=== PATIENT | female | born 1950 | race Caucasian/White ===

== ENCOUNTER 2018-07-04 13:11 | Emergency (ER) | payer MEDICARE, SELFPAY ==
[2018-07-04] VITALS (63 sets, daily range): BP systolic 136–163; BP diastolic 62–83; PULSE 98–130; RESP 18–22; TEMP 37.2–38.3; O2SAT 93–99
--- NOTE | 2018-07-04 13:37 | ED.GENADUL_ITS ---
Discharge Plan Disposition Patient Disposition: HOME Condition: Stable Discharge Details Chief Complaint: Abd Prob Clinical Impression: Diverticulitis large intestine Primary Care Provider: Delfina Cruz ED Provider: Virgilio Doshi Home Meds and New Rx's Prescriptions: New ciprofloxacin HCl 500 mg tablet 500 mg PO BID Qty: 20 RF: 0 metronidazole [Flagyl] 500 mg tablet 500 mg PO QID Qty: 40 RF: 0 No Action multivitamin 1 EACH tablet 1 ea PO DAILY RF: 0 ibuprofen [Advil Liqui-Gel] 200 MG capsule 600 mg PO Q8H PRN RF: 0 lovastatin 40 MG tablet 80 mg PO DAILY RF: 0 aspirin 81 MG tablet,delayed release (DR/EC) 81 mg PO DAILY RF: 0 lisinopril 10 MG tablet 10 mg PO DAILY RF: 0 calcium carbonate-vitamin D3 [Calcium 500 With D] 1 EACH tablet 1 ea PO DAILY RF: 0 Discharge Instructions Instructions: Diverticulitis (ED), Diverticulitis Diet (ED) Additional Instructions: As we discussed, you were offered admission overnight which you have declined. Return for reevaluation at any time for worsening or any other concern. Return tomorrow morning for recheck as discussed. Take antibiotics as prescribed. May use Tylenol as needed for discomfort. Small, frequent sips of fluids to maintain hydration and may slowly advance a bland diet as tolerated Medical Decision Making 67-year-old female presents from home complaining of 2-3 weeks of lower abdominal pain is been intermittent and now worse over the past 4-5 days time. Associated with increased flatus after eating and mild sensation of bloating. She arrives to emerge department afebrile, noted to have a pulse in the 120s, normal blood pressure. On exam she is tender in the lower abdomen. Differential diagnosis includes constipation, ileus, diverticulitis. Patient had IV access established, given fluid bolus and referred for laboratory testing and CT images. Diagnostics reveal white blood cell count 10, reassuring chemistries with LFTs. Her CT: reveals diverticulitis with 15 mm collection of air surrounded by 4-5 cm of soft tissue density. It is adjacent to the inflamed colon and could represent focal perforation and/or abscess. Case discussed with Dr Corley and patient seen in consultation. Admission offered which the patient declined, stating she could not leave her boyfriend at home alone. She did agree to an initial dose of antibiotics in the emergency department to return tomorrow for a recheck. She will be placed on ciprofloxacin and Flagyl Lab Data Lab results reviewed: Yes I reviewed the patient's lab results. Laboratory Tests Range/Units 07/04/18 07/04/18 13:45 13:45 WBC (4.4-10.8) k/cumm 10.49 RBC (4.00-5.20) m/cumm 3.15 L Hgb (12.0-15.5) g/dL 9.8 L Hct (36.0-46.0) % 30.3 L MCV (80-95) fL 96.2 H MCH (27.0-33.0) pg 31.1 MCHC (32.0-36.0) g/dL 32.3 RDW (11.7-14.6) % 11.5 L Plt Count (130-400) x1000/uL 265 MPV (8.0-11.0) fL 11.5 H Immature Gran % 0.2 Neutrophils % 86.5 Lymphocytes % 7.2 Monocytes % 6.0 Eosinophils % 0.0 Basophils % 0.1 Absolute Neutrophils (1.2-6.7) k/cumm 9.07 H Absolute Lymphocytes (1.2-3.4) k/cumm 0.76 L Absolute Monocytes (0.11-0.7) k/cumm 0.63 Absolute Eosinophils (0.0-0.7) k/cumm 0.00 Absolute Basophils (0.0-0.2) k/cumm 0.01 Sodium (136-145) mmol/L 140 Potassium (3.5-5.1) mmol/L 3.7 Chloride (98-107) mmol/L 103 Carbon Dioxide (21.0-32.0) mmol/L 23.4 Anion Gap (3-11) mmol/L 13.6 H BUN (7-18) mg/dL 25 H Creatinine (0.55-1.02) mg/dL 1.52 H Estimated GFR/1.73 m2 (mL/min/1.73m2) 34.11 Glucose (70-100) mg/dL 128 H Calcium (8.5-10.1) mg/dL 10.2 H Magnesium (1.8-2.4) mg/dL 2.1 Total Bilirubin (0.2-1.0) mg/dL 0.9 AST (15-37) U/L 16 ALT (12-78) U/L 23 Alkaline Phosphatase (46-116) U/L 199 H Troponin I (0.00-0.06) ng/mL < 0.02 Total Protein (6.4-8.2) g/dL 7.7 Albumin (3.4-5.0) g/dL 3.6 Lipase (73-393) U/L 237 HPI General Mode of arrival: ambulatory . Date/Time Provider Initiated Documentation: 07/04/18 13:13 . Limitations to Documentation: no limitations . Information obtained by: patient . History of Present Illness 67 year old F presents to the emergency department with the chief complaint of Lower abdominal pain over weeks time, worse the past 3-5 days, described as moderate, Quality is described as aching and dull, and is localized to the abdomen. Patient reports no radiation. Patient started experiencing this day(s) and it has been intermittent. No relieving factors improve symptom(s), Eating worsens symptoms . Patient notes other (Flatus, decreased p.o. and). Related Data Home Medications Medication Instructions Recorded Confirmed aspirin 81 mg PO DAILY tab-cap 06/05/14 07/04/18 calcium carbonate-vitamin D3 1 ea PO DAILY 06/05/14 07/04/18 [Calcium 500 + Vit D 400 Tablet] ibuprofen [Advil] 600 mg PO Q8H PRN 06/05/14 07/04/18 lisinopril 10 mg PO DAILY tab-cap 06/05/14 07/04/18 lovastatin 80 mg PO DAILY tab-cap 06/05/14 07/04/18 multivitamin 1 ea PO DAILY 06/05/14 07/04/18 ciprofloxacin HCl 500 mg PO BID #20 tab 07/04/18 metronidazole [Flagyl] 500 mg PO QID #40 tab 07/04/18 Previous Rx's Medication Instructions Recorded ciprofloxacin HCl 500 mg PO BID #20 tab 07/04/18 metronidazole [Flagyl] 500 mg PO QID #40 tab 07/04/18 Allergies Allergy/AdvReac Type Severity Reaction Status Date / Time Penicillins AdvReac diarrhea Unverified 07/04/18 14:04 General Stated Complaint: Abd Prob RAUDEL: 3 Review of Systems Review of Systems 8 systems reviewed and otherwise - [facility] Medical History Diverticulosis (Acute) Hypercholesteremia (Acute) Hypertension (Chronic) Social History Smoking/Tobacco Use Status: Never alcohol intake: never substance use type: does not use Exam Narrative Exam Narrative: GEN: awake, alert, oriented 3. Pleasant, well groomed, interactive. HEAD: Normocephalic, atraumatic ENT: Mucous membranes moist, oropharynx unremarkable, External ear exam unremarkable EYES: PERRL, EOMI NECK: Full ROM, no BAL, no menigismus CHEST/RESP: Nontender, clear to auscultation bilateral, no wheeze/rhonchi/rales CARDIOVASCULAR: Regular and tach, no murmur, rub delmar. 2+ Rad pulse bilateral ABDOMEN: Soft, tender in the lower abdomen without rebound or guard, no mass. +Bowel sounds EXT: Full ROM, no edema, no rash Neuro: Grossly normal neurologic exam, conversant, interactive. Psych: Speech fluent, thoughts congruent, affect normal Course Vital Signs Temperature 37.2 C 07/04/18 13:24 Pulse 128 H 07/04/18 13:24 Respiratory Rate 22 07/04/18 13:24 Blood Pressure 136/71 07/04/18 13:24 Pulse Oximetry 96 07/04/18 13:24 Temperature 37.2 C 07/04/18 13:24 Temperature Source Temporal Artery Scan 07/04/18 13:24 Pulse 128 H 07/04/18 13:24 Respiratory Rate 22 07/04/18 13:24 Blood Pressure 136/71 07/04/18 13:24 Blood Pressure Position Sitting 07/04/18 13:24 Pulse Oximetry 96 07/04/18 13:24 Oxygen Delivery Method Room Air 07/04/18 13:24 Oxygen Flow Rate 0 07/04/18 13:24 Pain Level 7 07/04/18 13:24
[2018-07-04] MEDS: Normal Saline Flush 10 ML SYR IVP (13:45)
[2018-07-04] MEDS: Lactated Ringers 1,000 ML 1000 ML IV (14:00)
[2018-07-04 14:31] LABS: Abs Immature Grans 0.02 k/cumm (0.0-0.09); Absolute Basophil Count 0.01 k/cumm (0.0-0.2); Absolute Lymphocyte Count 0.76 k/cumm (1.2-3.4); Absolute Monocyte Count 0.63 k/cumm (0.11-0.7); Absolute Neutrophil Count 9.07 k/cumm (1.2-6.7); Basophils % 0.1; HCT 30.3 % (36.0-46.0); HGB 9.8 g/dL (12.0-15.5); Immature Grans % 0.2; Lymphocytes % 7.2; Mean Corp. HGB Concentration 32.3 g/dL (32.0-36.0); Mean Corpuscular Hemoglobin 31.1 pg (27.0-33.0); Mean Corpuscular Volume 96.2 fL (80-95); Mean Platelet Volume 11.5 fL (8.0-11.0); Neutrophils % 86.5; Platelet Count 265 x1000/uL (130-400); RBC 3.15 m/cumm (4.00-5.20); RBC Distribution Width 11.5 % (11.7-14.6); White Blood Cell Count 10.49 k/cumm (4.4-10.8)
[2018-07-04 14:40] LABS: ALT 23 U/L (12-78); AST 16 U/L (15-37); Albumin 3.6 g/dL (3.4-5.0); Alkaline Phosphatase 199 U/L (46-116); Anion Gap 13.6 mmol/L (3-11); BUN 25 mg/dL (7-18); Bilirubin, Total 0.9 mg/dL (0.2-1.0); CO2 23.4 mmol/L (21.0-32.0); CREATININE 1.52 mg/dL (0.55-1.02); Calcium 10.2 mg/dL (8.5-10.1); Chloride 103 mmol/L (98-107); Estimated GFR 34.11 (mL/min/1.73m2); Glucose 128 mg/dL (70-100); Lipase 237 U/L (73-393); Magnesium 2.1 mg/dL (1.8-2.4); Potassium 3.7 mmol/L (3.5-5.1); Sodium 140 mmol/L (136-145); Total Protein 7.7 g/dL (6.4-8.2)
[2018-07-04 14:42] LABS: Troponin I < 0.02 ng/mL (0.00-0.06)
--- NOTE | 2018-07-04 15:07 | DI.CT_ITS ---
SYMPTOMS/DIAGNOSIS: LOWER ABDOMINAL PAIN, H/O TICS, LOW GFR ABDOMINAL AND PELVIC CT: CT examination of the abdomen and pelvis was performed without contrast administration. Images obtained through the lung bases show probable lingular scarring. No free intraperitoneal air seen in the general peritoneal cavity; however, there is a gas and fluid collection in the left lower quadrant adjacent to an area of sigmoid wall thickening and adjacent fat edema, consistent with a perforated diverticulitis with locally contained abscess. This measures up to about 5 cm in diameter. No evidence of obstruction. Liver, spleen and pancreas unremarkable by noncontrast criteria. Adrenals and kidneys appear normal. Abdominal aorta is of normal diameter. Bilateral fat-containing inguinal hernias noted. CONCLUSION: Findings consistent with a perforated diverticulitis with locally contained abscess, approximately 5 cm in diameter. Incidental 2-3 mm bibasilar intrapulmonary nodules noted.
--- NOTE | 2018-07-04 15:26 | NUR.NOTE ---
Void x2; unable to obtain UA up to now. 1st void contaminated with stool. Patient put large amount tissue paper in with 2nd void. Dr. Doshi notifiedNursing Note:
--- NOTE | 2018-07-04 15:33 | DI.VRAD_ITS ---
EXAM: CT Abdomen and Pelvis Without Contrast EXAM DATE/TIME: 07/04/2018 2:51 PM CLINICAL HISTORY: 67 years old, female; Pain; Abdominal pain; Other: Lower; Patient HX: Lower abd pain, HX tics, low gfr TECHNIQUE: Axial computed tomography images of the abdomen and pelvis without contrast. All CT scans at this facility use at least one of these dose optimization techniques: automated exposure control; mA and/or kV adjustment per patient size (includes targeted exams where dose is matched to clinical indication); or iterative reconstruction. Coronal and sagittal reformatted images were created and reviewed. COMPARISON: No relevant prior studies available. FINDINGS: Lower thorax: 4.6 mm nodule in the right lower lobe Opacities in the lingula may represent mild atelectasis or pneumonia. Small hiatal hernia. ABDOMEN: Liver: Normal. No mass. Gallbladder and bile ducts: Normal. No calcified stones. No ductal dilation. Pancreas: Normal. No ductal dilation. Spleen: Normal. No splenomegaly. Adrenals: Normal. No mass. Kidneys and ureters: Normal. No hydronephrosis. Stomach and bowel: Diverticulosis and Bowel wall thickening along the rectosigmoid colon. Mild pericolonic inflammatory changes. No evidence of abscess formation or bleeding. Findings consistent with acute diverticulitis. Appendix: Normal appendix PELVIS: Bladder: Unremarkable as visualized. Reproductive: Unremarkable as visualized. ABDOMEN and PELVIS: Intraperitoneal space: 15 mm collection of air surrounded by 4-5 cm of soft tissue density. It is adjacent to the inflamed colon and could represent focal perforation and/or abscess. Bones/joints: No acute fracture. No dislocation. Soft tissues: Unremarkable. Vasculature: Normal. No abdominal aortic aneurysm. Lymph nodes: Normal. No enlarged lymph nodes. IMPRESSION: 1. Diverticulosis and Bowel wall thickening along the rectosigmoid colon. Mild pericolonic inflammatory changes. No evidence of abscess formation or bleeding. Findings consistent with acute diverticulitis. 2. 15 mm collection of air surrounded by 4-5 cm of soft tissue density. It is adjacent to the inflamed colon and could represent focal perforation and/or abscess. Differential includes adnexal mass 3. Opacities in the lingula may represent mild atelectasis or pneumonia. THIS REPORT CONTAINS FINDINGS THAT MAY BE CRITICAL TO PATIENT CARE. The findings were verbally communicated via telephone conference with ROYAL HERNANDEZ at 3:32 PM EST on 07/04/2018. The findings were acknowledged and understood. Dictated and Authenticated by: Jeana Vaughn MD. Ordering:ORLIN Poole MD
--- NOTE | 2018-07-04 15:37 | NUR.NOTE ---
Difficulty with obtaining clean urine. Patient now also febrile. Dr. Doshi notified. Dr. Corley in to see Ms. Hagan Note:
--- NOTE | 2018-07-04 16:00 | SCONE_ITS ---
Date of service: 07/04/18 Time of Service: 15:48 Assessment and Plan (1) Diverticulitis large intestine: Current visit: Yes Status: Acute A\\ Diverticulitis with ? 15 mm microperf vs small abscess vs adnexal mass Low grade fever and abdominal tenderness P\\ Recommend admission with bowel rest and IV antibiotics Patient is unsure whether she wants to stay. She states that she has someone she takes care of at home. Risk of worsening symptoms reviewed with the patient. She will make some calls and then decide whether she will stay or go home. This was discussed with Dr. Doshi Qualifiers: Diverticulitis bleeding: without bleeding Diverticulitis complication: unspecified complication status Qualified Code(s): K57.32 - Diverticulitis of large intestine without perforation or abscess without bleeding History of Present Illness Chief Complaint: Abdominal pain Narrative: 67 year old with intermittent lower abdominal pain x 2-3 weeks. In the last 5-6 days the pain has increased. She doesn't complain of fevers or chills. She has had anorexia. No weight loss. Has known diverticulosis. NO diverticulitis in the past. Has been having BM's and passing flatus. Just had a low grade fever in the ER. Labs showed normal WBC CT scan Findings: 1. Diverticulosis and Bowel wall thickening along the rectosigmoid colon. Mild pericolonic inflammatory changes. No evidence of abscess formation or bleeding. Findings consistent with acute diverticulitis. 2. 15 mm collection of air surrounded by 4-5 cm of soft tissue density. It is adjacent to the inflamed colon and could represent focal perforation and/or abscess. Differential includes adnexal mass 3. Opacities in the lingula may represent mild atelectasis or pneumonia. Review of Systems Constitutional Reports poor appetite and Denies weight loss Cardiovascular Denies chest pain, Denies irregular heart rhythm, Denies palpitations and Denies dyspnea Respiratory Denies chest congestion, Denies cough, Denies excessive phlegm production and Denies dyspnea Gastrointestinal Reports as per HPI and Denies nausea Genitourinary Reports system reviewed and no additional complaints, except as docu Endocrine Denies cold intolerance, Denies heat intolerance and Denies palpitations Hematologic/Lymphatic Denies easy bleeding and Denies easy bruising [facility] Medical History Diverticulosis (Acute) Hypercholesteremia (Acute) Hypertension (Chronic) Social History Smoking/Tobacco Use Status: Never alcohol intake: never substance use type: does not use Exam Const General: cooperative and no acute distress Orientation: alert, awake and oriented x3 Resp Auscultation: clear to auscultation bilaterally Cardio Rate: regular rate Rhythm: regular rhythm Heart Sounds: no gallops, no murmurs and no rubs GI Palpation: soft, no hepatosplenomegaly and tender in the LLQ (no rebound, mild guarding) Auscultation: hypoactive bowel sounds Results Last Vital Signs Temp 100.9 F H 07/04/18 15:32 Pulse 104 H 07/04/18 15:32 Resp 18 07/04/18 15:32 BP 144/62 H 07/04/18 15:32 Pulse Ox 98 07/04/18 15:32 Labs : 07/04/18 13:45 07/04/18 13:45 Laboratory Results - last 24 hr 07/04/18 07/04/18 13:45 13:45 WBC 10.49 RBC 3.15 L Hgb 9.8 L Hct 30.3 L MCV 96.2 H MCH 31.1 MCHC 32.3 RDW 11.5 L Plt Count 265 MPV 11.5 H Immature Gran % 0.2 Neutrophils % 86.5 Lymphocytes % 7.2 Monocytes % 6.0 Eosinophils % 0.0 Basophils % 0.1 Absolute Neutrophils 9.07 H Absolute Lymphocytes 0.76 L Absolute Monocytes 0.63 Absolute Eosinophils 0.00 Absolute Basophils 0.01 Sodium 140 Potassium 3.7 Chloride 103 Carbon Dioxide 23.4 Anion Gap 13.6 H BUN 25 H Creatinine 1.52 H Estimated GFR/1.73 m2 34.11 Glucose 128 H Calcium 10.2 H Magnesium 2.1 Total Bilirubin 0.9 AST 16 ALT 23 Alkaline Phosphatase 199 H Troponin I < 0.02 Total Protein 7.7 Albumin 3.6 Lipase 237
[2018-07-04] MEDS: Acetaminophen 500 MG TAB 1000 MG PO (16:14)
[2018-07-04] MEDS: Ciprofloxacin 500 MG TAB PO ×2 (16:16→18:47)
[2018-07-04] MEDS: MetroNIDAZOLE 500 MG/100 ML BAG 100 MG IVPB (16:19)
[2018-07-04] MEDS: metroNIDAZOLE 500 MG TAB PO (18:47)
== END 2018-07-04 18:33 | disposition home or self-care (01) ==
PROVIDERS: Emergency Provider Emergency Medicine; PCP Nurse Practitioner
DX: K57.32 Diverticulitis of large intestine without perforation or abscess without bleeding (principal); R93.3 Abnormal findings on diagnostic imaging of other parts of digestive tract; I10 Essential (primary) hypertension
CPT/HCPCS: 36415; 80053; 83690; 96361; 96365; 99253; 99283; 99284; 74176; 83735; 84484; 85025

== ENCOUNTER 2018-07-05 10:04 | Emergency (ER) | payer MEDICARE, SELFPAY ==
[2018-07-05 10:34] VITALS: BP 136/63; PULSE 88; RESP 18; TEMP 36.6; O2SAT 98
--- NOTE | 2018-07-05 10:40 | ED.GENADUL_ITS ---
Discharge Plan Disposition Patient Disposition: HOME Condition: Fair Discharge Details Chief Complaint: GenMedical Clinical Impression: Diverticulitis large intestine Primary Care Provider: Delfina Cruz ED Provider: Mis Boyer Home Meds and New Rx's Prescriptions: Continued multivitamin 1 EACH tablet 1 ea PO DAILY RF: 0 ibuprofen [Advil Liqui-Gel] 200 MG capsule 600 mg PO Q8H PRN RF: 0 lovastatin 40 MG tablet 80 mg PO DAILY RF: 0 aspirin 81 MG tablet,delayed release (DR/EC) 81 mg PO DAILY RF: 0 lisinopril 10 MG tablet 10 mg PO DAILY RF: 0 calcium carbonate-vitamin D3 [Calcium 500 With D] 1 EACH tablet 1 ea PO DAILY RF: 0 ciprofloxacin HCl 500 mg tablet 500 mg PO BID Qty: 20 RF: 0 metronidazole [Flagyl] 500 mg tablet 500 mg PO QID Qty: 40 RF: 0 Discharge Instructions Instructions: Diverticulitis (ED), Diverticulitis Diet (ED) Additional Instructions: Encourage hydration. Continue medications as previously prescribed. General surgery group will reach out to you with a follow-up appointment in 2 weeks. If you do not hear from them, please call number listed below. If you develop nausea, vomiting, inability to stay hydrated, no blood in your stool, have increased pain, fevers or chills or other new/worsening symptoms please seek care urgently once again Referrals: Sean Brady DO [ [facility] STAFF PHYSICIAN] - ([phone]) Medical Decision Making Patient is a 67-year-old female presenting today for recheck of her diverticulitis. Patient was diagnosed with diverticulitis yesterday. At that point, it was recommended that the patient be admitted is that there is a 15 mm collection of air surrounded by a 4-5 cm soft tissue density concerning for focal perforation and/or abscess. She reports is been taking her Cipro and Flagyl as prescribed. Reports that overall she is feeling improved. Continues to be gassy which causes increased pressure until she has a bowel movement. Reports that she feels much improved after bowel movement. Has not been taking her other daily medications as she reports she was advised against this. Denies any nausea or vomiting. Denies any pain radiating to her back. No change in urinary habits. CT from yesterday reviewed: IMPRESSION: 1. Diverticulosis and Bowel wall thickening along the rectosigmoid colon. Mild pericolonic inflammatory changes. No evidence of abscess formation or bleeding. Findings consistent with acute diverticulitis. 2. 15 mm collection of air surrounded by 4-5 cm of soft tissue density. It is adjacent to the inflamed colon and could represent focal perforation and/or abscess. Differential includes adnexal mass 3. Opacities in the lingula may represent mild atelectasis or pneumonia. Consult with Dr. Garcia. Advised the patient is feeling improved and continues to refuse admission for this abscess. He advised that if she is continuing to feel well and improved she will continue with her daily antibiotics as previously prescribed. Advise a 2-week follow-up with them advised the patient will need a colonoscopy. Advised the patient may re-begin her daily medications as previously prescribed including her aspirin, vitamin D3, lisinopril, lovastatin. Discussed this plan with the patient. All of her questions and concerns were addressed. She was given strict return precautions. All of her questions and concerns were addressed and she is in agreement with this plan HPI General Mode of arrival: ambulatory . Date/Time Provider Initiated Documentation: 07/05/18 10:38 . Limitations to Documentation: no limitations . Information obtained by: patient . History of Present Illness 67 year old F presents to the emergency department with the chief complaint of diverticulitis, described as mild, with intensity rated at 3. Quality is described as aching, and is localized to the abdomen. Patient reports no radiation. Patient started experiencing this day(s) and it has been intermittent. other things that improve symptom(s), (passing flatus) No exacerbating factors reported . Patient notes loss of appetite (has been hydrating but diminished food intake); denies chest pain, cough, fever/chills, headaches, nausea/vomiting and shortness of breath. Patient did receive the following treatments prior to arrival, none Related Data Home Medications Medication Instructions Recorded Confirmed aspirin 81 mg PO DAILY tab-cap 06/05/14 07/04/18 calcium carbonate-vitamin D3 1 ea PO DAILY 06/05/14 07/04/18 [Calcium 500 With D] ibuprofen [Advil Liqui-Gel] 600 mg PO Q8H PRN 06/05/14 07/04/18 lisinopril 10 mg PO DAILY tab-cap 06/05/14 07/04/18 lovastatin 80 mg PO DAILY tab-cap 06/05/14 07/04/18 multivitamin 1 ea PO DAILY 06/05/14 07/04/18 ciprofloxacin HCl 500 mg PO BID #20 tab 07/04/18 metronidazole [Flagyl] 500 mg PO QID #40 tab 07/04/18 Previous Rx's Medication Instructions Recorded ciprofloxacin HCl 500 mg PO BID #20 tab 07/04/18 metronidazole [Flagyl] 500 mg PO QID #40 tab 07/04/18 Allergies Allergy/AdvReac Type Severity Reaction Status Date / Time Penicillins AdvReac diarrhea Unverified 07/05/18 10:37 General Stated Complaint: GenMedical RAUDEL: 4 Review of Systems Constitutional Reports as per HPI, Denies chills, Denies fatigue, Denies fever(s) and Denies headache(s) ENT Denies headache(s) Cardiovascular Reports as per HPI, Denies chest pain and Denies dyspnea Respiratory Denies dyspnea Gastrointestinal Reports as per HPI, Denies melena, Denies bloating, Reports change in bowel habits (has been having loose stools), Denies constipation, Reports excessive flatus, Reports loose stools, Denies nausea and Denies vomiting Genitourinary Denies system reviewed and no additional complaints, except as docu (denies change in urinary habits) Musculoskeletal Reports as per HPI and Denies back pain Integumentary/Breasts Reports as per HPI and Denies rash Neurologic Denies headache(s) Endocrine Denies fatigue [facility] Medical History Diverticulosis (Acute) Hypercholesteremia (Acute) Hypertension (Chronic) Social History Smoking/Tobacco Use Status: Never alcohol intake: never substance use type: does not use Exam Const General: cooperative, healthy appearing, comfortable, no acute distress and well developed Nutritional Appearance: average body habitus and well nourished Orientation: alert and awake [facility] Head: normal to inspection Mouth: moist mucous membranes Resp Effort & Inspection: normal respiratory effort, able to speak in complete sentences and no respiratory distress Auscultation: clear to auscultation bilaterally, no rales, no rhonchi and no wheezes Cardio Rate: regular rate Rhythm: regular rhythm Heart Sounds: S1 normal and S2 normal GI Inspection: normal to inspection, no abdominal wall ecchymosis, no edema and non-distended Palpation: soft, no hepatosplenomegaly, not firm, no guarding and tender (mild tenderness in LLQ with no peritoneal findings) Percussion: normal to percussion Auscultation: normal bowel sounds Back/Spine/Pelvis Back: no CVA tenderness Skin General skin exam: no rashes or lesions noted Trauma: no lacerations or abrasions Neuro General: alert and awake Cognition: normal cognition Speech: speech normal Gait: normal gait Psych Appearance: grossly normal and well kempt Mental Status: mental status grossly normal Speech and Movement: speech and movement normal Course Vital Signs Temperature 36.6 C 07/05/18 10:34 Pulse 88 07/05/18 10:34 Respiratory Rate 18 07/05/18 10:34 Blood Pressure 136/63 07/05/18 10:34 Pulse Oximetry 98 07/05/18 10:34 Temperature 36.6 C 07/05/18 10:34 Temperature Source Skin 07/05/18 10:34 Pulse 88 07/05/18 10:34 Respiratory Rate 18 07/05/18 10:34 Respiratory Effort 07/05/18 10:34 Blood Pressure 136/63 07/05/18 10:34 Pulse Oximetry 98 07/05/18 10:34 Oxygen Delivery Method Room Air 07/05/18 10:34 Oxygen Flow Rate 0 07/05/18 10:34 Pain Level 4 07/05/18 10:34 Comment 07/05/18 10:34
== END 2018-07-05 11:07 | disposition home or self-care (01) ==
PROVIDERS: Emergency Provider Physician Assistant; PCP Nurse Practitioner
DX: K57.32 Diverticulitis of large intestine without perforation or abscess without bleeding (principal); R93.3 Abnormal findings on diagnostic imaging of other parts of digestive tract; I10 Essential (primary) hypertension

== ENCOUNTER 2019-01-28 08:39 | Outpatient (REF) | payer MEDICARE, SELFPAY ==
[2019-01-28 11:32] LABS: HCT 33.8 % (36.0-46.0); Mean Corp. HGB Concentration 32.5 g/dL (32.0-36.0); Mean Corpuscular Hemoglobin 31.6 pg (27.0-33.0); Mean Corpuscular Volume 97.1 fL (80-95); Mean Platelet Volume 11.3 fL (8.0-11.0); Platelet Count 211 x1000/uL (130-400); RBC 3.48 m/cumm (4.00-5.20); RBC Distribution Width 11.6 % (11.7-14.6); White Blood Cell Count 2.85 k/cumm (4.4-10.8)
[2019-01-28 11:51] LABS: ALT 27 U/L (12-78); AST 18 U/L (15-37); Alkaline Phosphatase 91 U/L (46-116); Anion Gap 11.2 mmol/L (3-11); BUN 21 mg/dL (7-18); CO2 23.8 mmol/L (21.0-32.0); CREATININE 1.27 mg/dL (0.55-1.02); Calcium 9.1 mg/dL (8.5-10.1); Calculated LDL 157 mg/dL; Chloride 107 mmol/L (98-107); Cholesterol 246 mg/dL (50-200); Estimated GFR 41.85 (mL/min/1.73m2); Glucose 105 mg/dL (70-100); HDL Cholesterol 52 mg/dL (40-60); Potassium 4.4 mmol/L (3.5-5.1); Sodium 142 mmol/L (136-145); Total Protein 7.2 g/dL (6.4-8.2); Triglyceride 188 mg/dL (30-150)
== END 2019-01-28 08:59 ==
LOC: NCHCN 08:39
PROVIDERS: PCP Nurse Practitioner; Visit Provider Nurse Practitioner
DX: N28.9 Disorder of kidney and ureter, unspecified (principal); I10 Essential (primary) hypertension; E78.5 Hyperlipidemia, unspecified; D64.9 Anemia, unspecified
CPT/HCPCS: 80053; 80061; 83721; 85027

== ENCOUNTER 2019-03-10 00:44 | Outpatient (CLI) | payer MEDICARE, SELFPAY ==
--- NOTE | 2019-03-10 13:12 | DI.MAMMO_ITS ---
SYMPTOM/DIAGNOSIS: SCREENING, Z12.39 MAMMOGRAMS: Mammograms were interpreted according to the usual protocol including computer analysis with CAD system, tomosynthesis and C view imaging. Comparison is made with prior examinations. Breast density, Category B. No suspicious masses or microcalcifications are seen. There is an asymmetric density seen in the upper outer quadrant of the right breast. This area should be further evaluated with a spot compression view. Ultrasound may be indicated at that time IMPRESSION: Additional views of the right breast as described above. Category 0. MQSA ASSESSMENT OF FINDINGS: Incomplete: Needs additional imaging evaluation. Category 0. Patient will receive a letter notifying them of these results. BI-RADS category B. There are scattered areas of fibroglandular density.
== END 2019-03-10 01:04 ==
PROVIDERS: PCP Nurse Practitioner; Visit Provider Nurse Practitioner
DX: Z12.31 Encounter for screening mammogram for malignant neoplasm of breast (principal); R92.8 Other abnormal and inconclusive findings on diagnostic imaging of breast
CPT/HCPCS: 77063; 77067

== ENCOUNTER 2019-03-22 00:24 | Outpatient (CLI) | payer MEDICARE, SELFPAY ==
--- NOTE | 2019-03-22 10:45 | DI.COMBO_ITS ---
SYMPTOM/DIAGNOSIS: ASYMMETRIC DENSITY UPPER OUTER QUADRANT RT BREAST ADDITIONAL MAMMOGRAPHIC VIEWS RIGHT BREAST, RIGHT BREAST ULTRASOUND: 03/22 Additional images are interpreted according to the usual protocol including tomosynthesis and 2D imaging. Additional mammographic views of the right breast and right breast ultrasound are interpreted in conjunction. These examinations were obtained to evaluate a possible area of nodularity with microcalcifications in the upper, outer quadrant right breast. Additional mammographic views show no definite mass. The microcalcifications in question are nonspecific but probably benign and only number 3 or 4. These are punctate microcalcifications. Breast ultrasound shows no evidence of a mass or cyst. CONCLUSION: No specific evidence of malignancy at this time. Follow up unilateral right breast mammogram recommended in six months. Category 3. breast density category B. MQSA ASSESSMENT OF FINDINGS: Probably benign. Six month follow-up recommended. Category 3. Patient will receive a letter notifying them of these results. BI-RADS category B. There are scattered areas of fibroglandular density.
== END 2019-03-22 00:44 ==
PROVIDERS: PCP Nurse Practitioner; Visit Provider Nurse Practitioner
DX: Z12.31 Encounter for screening mammogram for malignant neoplasm of breast (principal); R92.8 Other abnormal and inconclusive findings on diagnostic imaging of breast; R92.0 Mammographic microcalcification found on diagnostic imaging of breast
CPT/HCPCS: 76642; 77063; 77067

== ENCOUNTER 2019-09-13 02:11 | Outpatient (CLI) | payer MEDICARE, SELFPAY ==
--- NOTE | 2019-09-13 | DI.MAMMO_ITS ---
EXAM: MG MAMMO DIAGNOSTIC UNI. CLINICAL HISTORY: ABNL RT MAMMO, R92.8. TECHNIQUE: Full field digital CC and MLO mammographic images were obtained with 3D tomosynthesis and utilizing computer aided detection (CAD). COMPARISON: . 2009 through 2018. FINDINGS: Breast density: Category B, scattered fibroglandular densities. This is a six-month follow-up from 10 March 2019. Masses/Architectural Distortion: None seen. Microcalcifications: No suspicious pleomorphic-type calcifications are seen. Stable benign appearing calcifications are noted. Skin Thickening/Nipple Retraction: None. Axilla: Unremarkable. IMPRESSION: 1. BI-RADS category 2, negative with benign findings. No significant interval change with no specifi c features of malignancy noted. 2. Unless there is more urgent need, screening mammography is recommended, as per [employer] guidelines. A negative radiographic report should not delay biopsy if a dominant or clinically suspicious mass is present. Up to ten percent of cancers are not identified on mammography. A negative report may reinforce clinical impression. Adenosis and dense breasts may obscure an underlying neoplasm. False positive reports average 6 to 10%. Patient will receive a letter notifying them of these results.
== END 2019-09-13 02:31 ==
PROVIDERS: PCP Nurse Practitioner; Visit Provider Nurse Practitioner
DX: Z12.31 Encounter for screening mammogram for malignant neoplasm of breast (principal); R92.8 Other abnormal and inconclusive findings on diagnostic imaging of breast; N64.59 Other signs and symptoms in breast
CPT/HCPCS: 77061; 77065; G0279

== ENCOUNTER 2020-02-23 09:39 | Outpatient (REF) | payer MEDICARE, SELFPAY ==
[2020-02-23 15:04] LABS: Absolute Basophil Count 0.02 10^3/uL (0.0-0.2); Absolute Eosinophil Count 0.04 10^3/uL (0.0-0.7); Absolute Lymphocyte Count 1.07 10^3/uL (1.2-3.4); Absolute Monocyte Count 0.38 10^3/uL (0.1-0.8); Absolute Neutrophil Count 1.73 10^3/uL (1.2-6.7); Basophils % 0.6; Eosinophils % 1.2; HCT 31.5 % (36.0-46.0); HGB 10.3 g/dL (11.2-15.7); MCH 31.8 pg (27.0-33.0); MCHC 32.7 % (32.0-36.0); MCV 97.2 fL (80-95); MPV 11.5 fL (8.0-11.0); Monocytes % 11.7; Neutrophils % 53.5; Nucleated RBC 0 %; Platelet Count 197 10^3/uL (130-400); RBC 3.24 10^6/uL (3.93-5.22); RDW 11.7 % (11.7-14.6); RDW-SD 41.4 fL; WBC 3.24 10^3/uL (4.4-10.8)
[2020-02-23 15:36] LABS: ALT 24 U/L (14-59); AST 17 U/L (15-37); Albumin 4.1 g/dL (3.4-5.0); Alkaline Phosphatase 78 U/L (46-116); Anion Gap 11.8 mmol/L (3-11); BUN 23 mg/dL (7-18); CO2 23.2 mmol/L (21.0-32.0); CREATININE 1.42 mg/dL (0.55-1.02); Calcium 9.1 mg/dL (8.5-10.1); Calculated LDL 168 mg/dL (<100); Chloride 108 mmol/L (98-107); Cholesterol 273 mg/dL (<200); Estimated GFR 36.68 (mL/min/1.73m2); Glucose 100 mg/dL (74-106); HDL Cholesterol 52 mg/dL (40-60); Potassium 4.4 mmol/L (3.5-5.1); Sodium 143 mmol/L (136-145); Triglyceride 265 mg/dL (<150)
== END 2020-02-23 09:59 ==
LOC: NCHCN 09:39
PROVIDERS: PCP Nurse Practitioner; Visit Provider Nurse Practitioner
DX: I10 Essential (primary) hypertension (principal); E78.5 Hyperlipidemia, unspecified; N28.9 Disorder of kidney and ureter, unspecified; R73.9 Hyperglycemia, unspecified
CPT/HCPCS: 80053; 80061; 83036; 85025

== ENCOUNTER 2020-02-24 01:47 | Outpatient (CLI) | payer MEDICARE, SELFPAY ==
--- NOTE | 2020-02-24 13:15 | DI.CT_ITS ---
EXAM: CT CHEST WO CLINICAL HISTORY: LUNG NODULE,R91.8,F/U INCIDENTAL FINDINGS ON ABD/PELVIC CT. TECHNIQUE: Imaging protocol: Axial computed tomography images were obtained and coronal and sagittal reformatted images were created and reviewed. COMPARISON: CT CT ABDOMEN PELVIS WO from 07/04/2018 FINDINGS: Tracheobronchial tree: Patent where visualized. Mediastinum and Mari: No dominant adenopathy or fluid collection. Note is made of an aberrant right s ubclavian artery which is a normal variant. Pulmonary parenchyma: There is a stable 5 mm nodule in the right lower lobe. There is a calcified gr anuloma in the right lower lobe. There are few other tiny 1-2 mm nodules scattered in the lungs. No architectural distortion. No focal consolidating infiltrates. Scarring in the right lung base and l eft lingula. Pleura: No effusion or pneumothorax. Heart: The heart is not dilated. Mild coronary artery calcification. No pericardial effusion. Aorta: Thoracic aorta non-dilated. Mild atherosclerosis. Upper abdomen: Unremarkable. Lymph nodes: Within normal limits. Bones:Degenerative changes. Soft tissues: Unremarkable. IMPRESSION: 1. No change in size of the 5 mm right lower lobe pulmonary nodule since 07/04/2018. 2. Atherosclerosis and mild coronary artery calcification. RADIATION DOSE DELIVERED: 470.06mGy.cm Total DLP 470.06mGy.cm Total DLP DATA REPOSITORY: All CT scans at this facility are submitted to the National Radiology Data Registry (NRDR) Dose Index Registry (DIR) with the [employer] (ACR). RADIATION OPTIMIZATION: All CT scans at this facility use at least one of these dose optimization te chniques: automated exposure control; mA and/or kV adjustment per patient size (includes targeted exa ms where dose is matched to clinical indication); or iterative reconstruction.
== END 2020-02-24 02:07 ==
PROVIDERS: PCP Nurse Practitioner; Visit Provider Nurse Practitioner
DX: R91.1 Solitary pulmonary nodule (principal); I70.0 Atherosclerosis of aorta
CPT/HCPCS: 71250

== ENCOUNTER 2021-06-10 14:46 | Outpatient (REF) | payer MEDICARE, SELFPAY ==
[2021-06-10 19:55] LABS: Hemoglobin A1C 5.9 % (<5.7)
[2021-06-10 20:01] LABS: ALT 36 U/L (14-59); AST 20 U/L (15-37); Albumin 4.3 g/dL (3.4-5.0); Alkaline Phosphatase 115 U/L (46-116); Anion Gap 11.4 mmol/L (3-11); BUN 33 mg/dL (7-18); Bilirubin, Total 0.9 mg/dL (0.2-1.0); CO2 25.6 mmol/L (21.0-32.0); CREATININE 1.6 mg/dL (0.55-1.02); Calcium 9.7 mg/dL (8.5-10.1); Calculated LDL 209 mg/dL (<100); Chloride 105 mmol/L (98-107); Cholesterol 314 mg/dL (<200); Estimated GFR 31.87 (mL/min/1.73m2); Glucose 91 mg/dL (74-106); HDL Cholesterol 55 mg/dL (40-60); Potassium 4.5 mmol/L (3.5-5.1); Sodium 142 mmol/L (136-145); Total Protein 7.5 g/dL (6.4-8.2); Triglyceride 251 mg/dL (<150)
== END 2021-06-10 14:47 | disposition home or self-care (01) ==
LOC: NCHCN 14:46
PROVIDERS: PCP Nurse Practitioner; Visit Provider Nurse Practitioner
DX: I10 Essential (primary) hypertension (principal); R73.03 Prediabetes; E78.5 Hyperlipidemia, unspecified
CPT/HCPCS: 80053; 80061; 83036

== ENCOUNTER 2021-06-20 02:09 | Outpatient (CLI) | payer MEDICARE, SELFPAY ==
--- NOTE | 2021-06-20 14:45 | DI.CT_ITS ---
Exam(s) CT CHEST WO EXAM: CT CHEST WO CLINICAL HISTORY: LUNG NODULE R91.8. TECHNIQUE: Multi planar reconstructions were performed. CONTRAST MATERIAL: None COMPARISON: CT CT CHEST WO from 02/24/2020 FINDINGS: CHEST: LUNGS: Previously described 4-5 millimeter right lower lobe nodule again remains unchanged (series 2/ image 39). Few other tiny nodules in the right lower lobe are also unchanged, largest of these measuring millime ters. In the opposite-left lung there is also an unchanged 2 millimeters subpleural nodule in the po sterior basal segment of the left lower lobe which remains unchanged. Also unchanged are some increa sed markings in the lingular segment of the left lung. MEDIASTINUM: There is no obvious hilar nor mediastinal adenopathy. Visualized thyroid unremarkable.No obvious axillary adenopathy CARDIAC: Heart size is normal. There is no pericardial effusion.Caliber thoracic aorta is within nor mal limits. An aberrant right subclavian artery is again noted. VISUALIZED UPPER ABDOMEN: OSSEOUS: No significant osseous lesions.. IMPRESSION: 1. Continued stability of the previously described 4-5 millimeter right lower lobe nodule. Other tin y benign nodules also remain stable. There are no pleural effusions. No intrathoracic adenopathy. 2. Incidentally again noted is an aberrant right subclavian artery. RADIATION DOSE DELIVERED: 441.26mGy.cm Total DLP DATA REPOSITORY: All CT scans at this facility are submitted to the National Radiology Data Registry (NRDR) Dose Index Registry (DIR) with the [employer] (ACR). RADIATION OPTIMIZATION: All CT scans at this facility use at least one of these dose optimization te chniques: automated exposure control; mA and/or kV adjustment per patient size (includes targeted exa ms where dose is matched to clinical indication); or iterative reconstruction.
== END 2021-06-20 02:29 ==
PROVIDERS: PCP Nurse Practitioner; Visit Provider Nurse Practitioner
DX: R91.1 Solitary pulmonary nodule (principal); J98.4 Other disorders of lung
CPT/HCPCS: 71250

== ENCOUNTER 2021-08-07 00:49 | Outpatient (CLI) | payer MEDICARE, SELFPAY ==
--- NOTE | 2021-08-07 14:40 | DI.MAMMO_ITS ---
Exam(s) MAMMO SCREENING EXAM: MAMMO SCREENING CLINICAL HISTORY: SCREENING, Z12.39. TECHNIQUE: Bilateral full field digital CC and MLO mammographic images were obtained with 3D tomosyn thesis and utilizing computer aided detection (CAD). COMPARISON: Prior mammograms were reviewed, the most recent being September 2019. FINDINGS: There are no new spiculated masses nor malignant appearing microcalcification groups. Benign appearing microcalcifications right breast are again noted. There is no significant architectural distortion nor skin thickening-retraction. IMPRESSION: Stable benign findings. No radiographic evidence of malignancy. BI-RADS Category 2 - Benign Findings Breast Density - Category B - Scattered areas of fibroglandular density Breast density Category C or D implies that the patient has dense breast tissue. Dense breast tissue can make it harder to find cancer on a mammogram. Dense breast tissue is also associated with an incr eased risk of breast cancer. This information about the result of the mammogram report was provided to the patient to raise their awareness. Use this report when you speak with the patient about their risks for breast cancer, which includes their family history. At that time, you may recommend additional screening tests (Ultrasoun d or MRI) as these tests may add significant information. A negative radiographic report should not delay biopsy if a dominant or clinically suspicious mass is present. Up to ten percent of cancers are not identified on mammography. A negative report may reinforce clinical impression. Adenosis and dense breasts may obscure an underlying neoplasm. False positive reports average 6 to 10%. Patient will receive a letter notifying them of these results.
== END 2021-08-07 01:09 ==
PROVIDERS: PCP Nurse Practitioner; Visit Provider Nurse Practitioner
DX: Z12.31 Encounter for screening mammogram for malignant neoplasm of breast (principal); R92.0 Mammographic microcalcification found on diagnostic imaging of breast
CPT/HCPCS: 77063; 77067

== ENCOUNTER 2022-01-14 14:19 | Outpatient (REF) | payer MEDICARE, SELFPAY ==
[2022-01-14 16:59] LABS: COMMENT (LAB VIEW ONLY) 15.68 mg/dL
[2022-01-14 19:36] LABS: Abs Immature Grans 0.01 10^3/uL (0.0-0.06); Absolute Basophil Count 0.02 10^3/uL (0.0-0.2); Absolute Eosinophil Count 0.06 10^3/uL (0.0-0.7); Absolute Lymphocyte Count 1.25 10^3/uL (1.2-3.4); Absolute Monocyte Count 0.51 10^3/uL (0.1-0.8); Absolute Neutrophil Count 2.11 10^3/uL (1.2-6.7); Basophils % 0.5; Eosinophils % 1.5; HCT 32.1 % (36.0-46.0); HGB 10.7 g/dL (11.2-15.7); Immature Grans % 0.3; Lymphocytes % 31.6; MCH 30.8 pg (27.0-33.0); MCHC 33.3 % (32.0-36.0); MCV 93 fL (80-95); MPV 10.9 fL (8.0-11.0); Monocytes % 12.9; Neutrophils % 53.2; Platelet Count 236 10^3/uL (130-400); RBC 3.47 10^6/uL (3.93-5.22); RDW 11.9 % (11.7-14.6); RDW-SD 40.2 fL; WBC 3.96 10^3/uL (4.4-10.8)
[2022-01-14 19:40] LABS: ALT 32 U/L (14-59); AST 26 U/L (15-37); Albumin 4.2 g/dL (3.4-5.0); Alkaline Phosphatase 99 U/L (46-116); Anion Gap 10.7 mmol/L (3-11); BUN 23 mg/dL (7-18); Bilirubin, Total 0.9 mg/dL (0.2-1.0); CO2 25.3 mmol/L (21.0-32.0); CREATININE 1.4 mg/dL (0.55-1.02); Calcium 9.8 mg/dL (8.5-10.1); Chloride 104 mmol/L (98-107); Estimated GFR 37.07 (mL/min/1.73m2); Glucose 95 mg/dL (74-106); Potassium 3.9 mmol/L (3.5-5.1); Sodium 140 mmol/L (136-145); Total Protein 7.6 g/dL (6.4-8.2)
== END 2022-01-14 14:20 | disposition home or self-care (01) ==
LOC: NCHCN 14:19
PROVIDERS: PCP Nurse Practitioner; Visit Provider Nurse Practitioner Family
DX: I10 Essential (primary) hypertension (principal); D64.9 Anemia, unspecified; N28.9 Disorder of kidney and ureter, unspecified; E78.5 Hyperlipidemia, unspecified
CPT/HCPCS: 80053; 82043; 82570; 85025

== ENCOUNTER 2022-07-15 14:17 | Outpatient (REF) | payer MEDICARE, SELFPAY ==
[2022-07-15 19:18] LABS: Abs Immature Grans 0.01 10^3/uL (0.0-0.06); Absolute Basophil Count 0.02 10^3/uL (0.0-0.2); Absolute Eosinophil Count 0.03 10^3/uL (0.0-0.7); Absolute Lymphocyte Count 1.29 10^3/uL (1.2-3.4); Absolute Monocyte Count 0.44 10^3/uL (0.1-0.8); Absolute Neutrophil Count 2.04 10^3/uL (1.2-6.7); Basophils % 0.5; Eosinophils % 0.8; HCT 34.5 % (36.0-46.0); Immature Grans % 0.3; Lymphocytes % 33.7; MCH 30.3 pg (27.0-33.0); MCHC 31.9 % (32.0-36.0); MCV 95 fL (80-95); Monocytes % 11.5; Neutrophils % 53.2; Platelet Count 233 10^3/uL (130-400); RBC 3.63 10^6/uL (3.93-5.22); RDW 11.8 % (11.7-14.6); RDW-SD 40.9 fL; WBC 3.83 10^3/uL (4.4-10.8)
[2022-07-15 19:28] LABS: ALT 34 U/L (14-59); AST 23 U/L (15-37); Albumin 4.5 g/dL (3.4-5.0); Alkaline Phosphatase 115 U/L (46-116); BUN 25 mg/dL (7-18); Bilirubin, Total 1.1 mg/dL (0.2-1.0); CREATININE 1.5 mg/dL (0.55-1.02); Calcium 10.5 mg/dL (8.5-10.1); Calculated LDL 165 mg/dL (<100); Chloride 104 mmol/L (98-107); Cholesterol 281 mg/dL (<200); Estimated GFR 37.03 (mL/min/1.73m2); Glucose 93 mg/dL (74-106); HDL Cholesterol 66 mg/dL (40-60); Potassium 4.1 mmol/L (3.5-5.1); Sodium 142 mmol/L (136-145); Total Protein 7.8 g/dL (6.4-8.2); Triglyceride 250 mg/dL (<150)
[2022-07-15 19:47] LABS: Hemoglobin A1C 6.2 % (<5.7)
== END 2022-07-15 14:18 | disposition home or self-care (01) ==
LOC: NCHCN 14:17
PROVIDERS: PCP Nurse Practitioner; Visit Provider Nurse Practitioner Family
DX: I10 Essential (primary) hypertension (principal); R73.03 Prediabetes; N18.32 Chronic kidney disease, stage 3b; E78.5 Hyperlipidemia, unspecified; N28.9 Disorder of kidney and ureter, unspecified; D64.9 Anemia, unspecified
CPT/HCPCS: 80053; 80061; 83036; 85025

== ENCOUNTER 2022-08-27 00:08 | Outpatient (CLI) | payer MEDICARE, SELFPAY ==
--- NOTE | 2022-08-27 | DI.MAMMO_ITS ---
Exam(s) MAMMO SCREENING EXAM: MAMMO SCREENING CLINICAL HISTORY: SCREENING, Z12.39 TECHNIQUE: Mammograms were interpreted according to the usual protocol including computer analysis w [employer] CAD system, tomosynthesis and C-view imaging. COMPARISON: 2012 through 2021 FINDINGS: The breasts are composed of scattered fibroglandular densities, Breast Density category B. No suspicious masses or suspicious microcalcifications are seen. No skin thickening or abnormal axillary lymph nodes are seen. There has been no significant change from prior exams. IMPRESSION: BI-RADS Category 1, Negative mammogram Yearly screening mammography is recommended. Breast Density - Category B, scattered fibroglandular densities. A negative radiographic report should not delay biopsy if a dominant or clinically suspicious mass is present. Up to ten percent of cancers are not identified on mammography. A negative report may reinforce clinical impression. Adenosis and dense breasts may obscure an underlying neoplasm. False positive reports average 6 to 10%. Patient will receive a letter notifying them of these results.
== END 2022-08-27 00:28 ==
LOC: DI 00:09
PROVIDERS: PCP Nurse Practitioner; Visit Provider Nurse Practitioner Family
DX: Z12.31 Encounter for screening mammogram for malignant neoplasm of breast (principal)
CPT/HCPCS: 77063; 77067

== ENCOUNTER 2023-03-30 13:38 | Outpatient (REF) | payer MEDICARE, SELFPAY ==
[2023-03-30 15:21] LABS: HCT 34.4 % (36.0-46.0); HGB 11.2 g/dL (11.2-15.7); MCH 30.9 pg (27.0-33.0); MCHC 32.6 % (32.0-36.0); MCV 95 fL (80-95); Platelet Count 220 10^3/uL (130-400); RBC 3.63 10^6/uL (3.93-5.22); RDW 11.6 % (11.7-14.6); RDW-SD 40.4 fL; WBC 2.94 10^3/uL (4.4-10.8)
[2023-03-30 15:41] LABS: Hemoglobin A1C 6.2 % (<5.7)
[2023-03-30 15:45] LABS: ALT 93 U/L (14-59); AST 50 U/L (15-37); Alkaline Phosphatase 358 U/L (46-116); Anion Gap 11.2 mmol/L (3-11); BUN 20 mg/dL (7-18); Bilirubin, Total 1.4 mg/dL (0.2-1.0); CO2 25.8 mmol/L (21.0-32.0); CREATININE 1.5 mg/dL (0.55-1.02); Calcium 10.3 mg/dL (8.5-10.1); Calculated LDL 108 mg/dL (<100); Chloride 102 mmol/L (98-107); Cholesterol 211 mg/dL (<200); Glucose 119 mg/dL (74-106); HDL Cholesterol 71 mg/dL (40-60); Potassium 4.4 mmol/L (3.5-5.1); Sodium 139 mmol/L (136-145); Total Protein 7.4 g/dL (6.4-8.2); Triglyceride 161 mg/dL (<150)
== END 2023-03-30 13:39 | disposition home or self-care (01) ==
LOC: NCHCN 13:38
PROVIDERS: PCP Nurse Practitioner; Visit Provider Nurse Practitioner Family
DX: R73.03 Prediabetes (principal); I10 Essential (primary) hypertension; E78.5 Hyperlipidemia, unspecified; D64.9 Anemia, unspecified; N18.32 Chronic kidney disease, stage 3b
CPT/HCPCS: 80053; 80061; 85027; 83036

== ENCOUNTER 2023-05-06 14:57 | Outpatient (CLI) | payer MEDICARE, SELFPAY ==
[2023-05-06 14:38] LABS: Absolute Basophil Count 0.01 10^3/uL (0.0-0.2); Absolute Eosinophil Count 0.05 10^3/uL (0.0-0.7); Absolute Lymphocyte Count 1.54 10^3/uL (1.2-3.4); Absolute Monocyte Count 0.45 10^3/uL (0.1-0.8); Absolute Neutrophil Count 1.92 10^3/uL (1.2-6.7); Basophils % 0.3; Eosinophils % 1.3; HCT 33.9 % (36.0-46.0); Lymphocytes % 38.8; MCH 30.6 pg (27.0-33.0); MCHC 32.4 % (32.0-36.0); MCV 94 fL (80-95); MPV 10.4 fL (8.0-11.0); Monocytes % 11.3; Neutrophils % 48.3; Platelet Count 221 10^3/uL (130-400); RBC 3.59 10^6/uL (3.93-5.22); RDW 11.9 % (11.7-14.6); RDW-SD 41.2 fL; WBC 3.97 10^3/uL (4.4-10.8)
[2023-05-06 15:44] LABS: ALT 81 U/L (14-59); AST 41 U/L (15-37); Albumin 4.1 g/dL (3.4-5.0); Alkaline Phosphatase 394 U/L (46-116); Anion Gap 6.2 mmol/L (3-11); BUN 21 mg/dL (7-18); Bilirubin, Total 0.8 mg/dL (0.2-1.0); CO2 26.8 mmol/L (21.0-32.0); CREATININE 1.4 mg/dL (0.55-1.02); Calcium 9.6 mg/dL (8.5-10.1); Chloride 105 mmol/L (98-107); Estimated GFR 39.97 (mL/min/1.73m2); Glucose 112 mg/dL (74-106); Lipase 105 U/L (16-77); Sodium 138 mmol/L (136-145); Total Protein 7.3 g/dL (6.4-8.2)
[2023-05-06 17:05] LABS: GGT 744 U/L (5-55)
[2023-05-07 10:37] LABS: Hepatitis C Ab w Rflx HCV PCR Negative (Negative)
== END 2023-05-06 14:58 | disposition home or self-care (01) ==
LOC: LBO 14:57
PROVIDERS: Visit Provider Nurse Practitioner Family
DX: R74.8 Abnormal levels of other serum enzymes (principal); K59.09 Other constipation; I12.9 Hypertensive chronic kidney disease with stage 1 through stage 4 chronic kidney disease, or unspecified chronic kidney disease; N18.32 Chronic kidney disease, stage 3b
CPT/HCPCS: 36415; 80053; 83690; 86803; 82977; 85025

== ENCOUNTER → 2023-05-26 00:29 | Outpatient (CLI) | payer MEDICARE, SELFPAY ==
--- NOTE | 2023-05-26 | DI.US_ITS ---
Exam(s) US ABDOMEN EXAM: US ABDOMEN CLINICAL HISTORY: R74.8,R79.89;Elevated Alkaline phospatase,Lipase and LFT TECHNIQUE: Ultrasound abdomen performed using standard protocol. COMPARISON: CT CT CHEST WO from 02/24/2020 FINDINGS: LIVER: Normal size. Slightly increased echogenicity which could indicate mild hepatic steatosis. Ar ea of focal fatty sparing near the gallbladder fossa.. No focal liver lesions are seen. GALLBLADDER: No evidence of cholelithiasis. No evidence of wall thickening. No pericholecystic fluid identified. SUTTON'S SIGN: Negative. BILIARY SYSTEM: No intrahepatic or extrahepatic biliary ductal dilation. KIDNEYS: Kidneys are symmetric in size. No evidence of renal calculi. No evidence of hydronephrosis. No renal mass or cyst identified. PANCREAS: Normal where visualized. SPLEEN: Not enlarged. ABDOMINAL AORTA AND IVC: Visualized portions normal caliber. ASCITES: None seen. IMPRESSION: Mild hepatic steatosis. DATA REPOSITORY:
== END ==
PROVIDERS: Visit Provider Nurse Practitioner Family
DX: K76.0 Fatty (change of) liver, not elsewhere classified (principal); R79.89 Other specified abnormal findings of blood chemistry
CPT/HCPCS: 76700

== ENCOUNTER 2023-10-13 18:53 | Outpatient (REF) | payer MEDICARE, SELFPAY ==
[2023-10-13 19:06] LABS: COMMENT (LAB VIEW ONLY) 56.47 mg/dL; Microalb ug/mg Crea 6.9 ug/mg Cr
== END 2023-10-13 18:54 | disposition home or self-care (01) ==
LOC: NCHCN 18:53
PROVIDERS: Visit Provider Nurse Practitioner Family
DX: Z83.3 Family history of diabetes mellitus (principal); Z13.1 Encounter for screening for diabetes mellitus
CPT/HCPCS: 82043; 82570

== ENCOUNTER → 2023-10-20 02:13 | Outpatient (CLI) | payer MEDICARE, SELFPAY ==
--- NOTE | 2023-10-20 | DI.MAMMO_ITS ---
Exam(s) MAMMO SCREENING EXAM: MAMMO SCREENING CLINICAL HISTORY: Z12.31 Encounter for screening mammogram for malig neop breast TECHNIQUE: Mammograms were interpreted according to the usual protocol including computer analysis w ith CAD system, tomosynthesis and C-view imaging. COMPARISON: 2013 through 2022 FINDINGS: The breasts are composed of scattered fibroglandular densities, Breast Density category B. No suspicious masses or suspicious microcalcifications are seen. No skin thickening or abnormal axillary lymph nodes are seen. There has been no significant change from prior exams. IMPRESSION: BI-RADS Category 1, Negative mammogram Yearly screening mammography is recommended. Breast Density - Category B, scattered fibroglandular densities. A negative radiographic report should not delay biopsy if a dominant or clinically suspicious mass is present. Up to ten percent of cancers are not identified on mammography. A negative report may reinforce clinical impression. Adenosis and dense breasts may obscure an underlying neoplasm. False positive reports average 6 to 10%. Patient will receive a letter notifying them of these results.
== END ==
PROVIDERS: Visit Provider Nurse Practitioner Family
DX: Z12.31 Encounter for screening mammogram for malignant neoplasm of breast (principal); R92.323 Mammographic fibroglandular density, bilateral breasts
CPT/HCPCS: 77063; 77067

== ENCOUNTER → 2023-11-05 03:21 | Outpatient (CLI) | payer MEDICARE, SELFPAY ==
--- NOTE | 2023-11-05 | DI.CT_ITS ---
Exam(s) CT CHEST WO EXAM: CT CHEST WO CLINICAL HISTORY: F/U NODULES OF LUNGS,R91.8. TECHNIQUE: Imaging protocol: Axial computed tomography images were obtained and coronal and sagittal reformatted images were created and reviewed. COMPARISON: CT CT CHEST WO from 02/24/[address] CHEST WO from 06/20/2021 FINDINGS: Tracheobronchial tree: Patent where visualized. Pulmonary parenchyma: No consolidation or dominant measurable mass. There is a 4 mm nodule in the med ial aspect of the right lower lobe (series 3, image 368). This was present on the prior examination. There are calcified granulomas in the lungs. There also again seen several round ground-glass nodu les distributed throughout both lungs. No focal consolidating infiltrates are seen. Mediastinum and Mari: No dominant adenopathy or fluid collection. The esophagus is unremarkable.There is a small hiatal hernia. Thyroid gland: There is a 4 mm non hypodense nodule in the right lobe of the thyroid gland. No follo w-up is recommended. Pleura: No effusion or pneumothorax. Heart: The heart is not dilated. Coronary artery calcification and/or stents are present. No pericar dial effusion. Aorta: Thoracic aorta non-dilated. There is an aberrant right subclavian artery. Atherosclerotic lashae cification is present. Upper abdomen: Unremarkable. Lymph nodes: Within normal limits. Soft tissues: Unremarkable. Bones:Within normal limits for the patient's age. IMPRESSION: Stable pulmonary nodules. In patients with multiple subsolid nodules smaller than 6 mm, one must consider infectious causes. If lesions remain persistent after an initial follow-up scan at 3???6 months, consider follow-up at alcides roximately 2 and 4 years to confirm stability, depending on the clinical setting (grade 1C; strong re commendation, low- or [id number]-tivvesg evidence). (Shae et al., 2017) RADIATION DOSE DELIVERED: 499.84mGy.cm Total DLP 499.84mGy.cm Total DLP DATA REPOSITORY: All CT scans at this facility are submitted to the National Radiology Data Registry (NRDR) Dose Index Registry (DIR) with the [employer] (ACR). RADIATION OPTIMIZATION: All CT scans at this facility use at least one of these dose optimization te chniques: automated exposure control; mA and/or kV adjustment per patient size (includes targeted exa ms where dose is matched to clinical indication); or iterative reconstruction.
== END ==
PROVIDERS: PCP Nurse Practitioner Family; Visit Provider Nurse Practitioner Family
DX: R91.8 Other nonspecific abnormal finding of lung field (principal)
CPT/HCPCS: 71250

== ENCOUNTER 2024-01-18 17:59 | Outpatient (REF) | payer MEDICARE, SELFPAY ==
[2024-01-18 18:33] LABS: HCT 32.5 % (36.0-46.0); HGB 10.6 g/dL (11.2-15.7); MCH 30.8 pg (27.0-33.0); MCHC 32.6 % (32.0-36.0); MCV 95 fL (80-95); Platelet Count 229 10^3/uL (130-400); RBC 3.44 10^6/uL (3.93-5.22); RDW 12.1 % (11.7-14.6); RDW-SD 42.1 fL; WBC 4.85 10^3/uL (4.4-10.8)
[2024-01-18 18:57] LABS: Hemoglobin A1C 6.7 % (<5.7)
[2024-01-18 19:01] LABS: ALT 53 U/L (14-59); AST 32 U/L (15-37); Albumin 4.3 g/dL (3.4-5.0); Alkaline Phosphatase 259 U/L (46-116); Anion Gap 12.3 mmol/L (3-11); BUN 28 mg/dL (7-18); Bilirubin, Total 0.92 mg/dL (0.2-1.0); CO2 22.7 mmol/L (21.0-32.0); CREATININE 1.8 mg/dL (0.55-1.02); Calcium 9.9 mg/dL (8.5-10.1); Calculated LDL 125 mg/dL (<100); Chloride 105 mmol/L (98-107); Cholesterol 231 mg/dL (<200); Estimated GFR 29.38 (mL/min/1.73m2); Glucose 104 mg/dL (74-106); HDL Cholesterol 58 mg/dL (40-60); Potassium 4.4 mmol/L (3.5-5.1); Sodium 140 mmol/L (136-145); Total Protein 7.9 g/dL (6.4-8.2); Triglyceride 240 mg/dL (<150)
== END 2024-01-18 18:00 | disposition home or self-care (01) ==
LOC: NCHCN 17:59
PROVIDERS: PCP Nurse Practitioner Family; Visit Provider Nurse Practitioner Family
DX: E78.5 Hyperlipidemia, unspecified (principal); D64.9 Anemia, unspecified; R73.03 Prediabetes; N18.32 Chronic kidney disease, stage 3b
CPT/HCPCS: 80053; 80061; 85027; 83036

== ENCOUNTER 2024-04-13 15:21 | Outpatient (REF) | payer MEDICARE, SELFPAY ==
[2024-04-13 19:27] LABS: HCT 32.9 % (36.0-46.0); HGB 10.8 g/dL (11.2-15.7); MCH 31.9 pg (27.0-33.0); MCHC 32.8 % (32.0-36.0); MCV 97 fL (80-95); MPV 10.6 fL (8.0-11.0); Platelet Count 247 10^3/uL (130-400); RBC 3.39 10^6/uL (3.93-5.22); RDW 11.4 % (11.7-14.6); RDW-SD 40.6 fL; WBC 4.04 10^3/uL (4.4-10.8)
[2024-04-13 19:34] LABS: Iron 121 ug/dL (50-170); Total Iron Binding Capacity 324 ug/dL (250-450); Transferrin Sat 37 % (15-50)
[2024-04-13 19:57] LABS: ALT 38 U/L (14-59); AST 25 U/L (15-37); Albumin 4.3 g/dL (3.4-5.0); Alkaline Phosphatase 199 U/L (46-116); Anion Gap 6.9 mmol/L (3-11); BUN 22 mg/dL (7-18); Bilirubin, Total 0.93 mg/dL (0.2-1.0); CO2 28.1 mmol/L (21.0-32.0); CREATININE 1.7 mg/dL (0.55-1.02); Calcium 9.9 mg/dL (8.5-10.1); Chloride 102 mmol/L (98-107); Estimated GFR 31.47 (mL/min/1.73m2); Ferritin 68 ng/mL (8-252); Glucose 110 mg/dL (74-106); Sodium 137 mmol/L (136-145); Total Protein 7.5 g/dL (6.4-8.2); Vitamin D 25 Total 46.4 ng/mL (30-100)
[2024-04-13 20:00] LABS: Hemoglobin A1C 6.4 % (<5.7)
== END 2024-04-13 15:22 | disposition home or self-care (01) ==
LOC: NCHCN 15:21
PROVIDERS: PCP Nurse Practitioner Family; Visit Provider Nurse Practitioner Family
DX: N18.32 Chronic kidney disease, stage 3b (principal)
CPT/HCPCS: 80053; 82306; 85027; 82728; 83036; 83540; 83550

== ENCOUNTER 2024-09-20 12:31 | Outpatient (REF) | payer MEDICARE, SELFPAY ==
[2024-09-20 15:19] LABS: HCT 33.2 % (36.0-46.0); HGB 10.7 g/dL (11.2-15.7); MCH 31.4 pg (27.0-33.0); MCHC 32.2 % (32.0-36.0); MCV 97 fL (80-95); Platelet Count 240 10^3/uL (130-400); RBC 3.41 10^6/uL (3.93-5.22); RDW 11.8 % (11.7-14.6); RDW-SD 42.2 fL; WBC 4.08 10^3/uL (4.4-10.8)
[2024-09-20 15:34] LABS: Iron 90 ug/dL (50-170); Total Iron Binding Capacity 309 ug/dL (250-450); Transferrin Sat 29 % (15-50)
[2024-09-20 15:38] LABS: Hemoglobin A1C 6.5 % (<5.7)
[2024-09-20 15:50] LABS: ALT 48 U/L (14-59); AST 29 U/L (15-37); Albumin 4.2 g/dL (3.4-5.0); Alkaline Phosphatase 288 U/L (46-116); Anion Gap 8.6 mmol/L (3-11); BUN 22 mg/dL (7-18); Bilirubin, Total 0.8 mg/dL (0.2-1.0); CO2 27.4 mmol/L (21.0-32.0); CREATININE 1.8 mg/dL (0.55-1.02); Calcium 9.8 mg/dL (8.5-10.1); Chloride 107 mmol/L (98-107); Estimated GFR 29.38 (mL/min/1.73m2); Ferritin 85 ng/mL (8-252); Glucose 122 mg/dL (74-106); Potassium 4.3 mmol/L (3.5-5.1); Sodium 143 mmol/L (136-145); Total Protein 7.5 g/dL (6.4-8.2)
== END 2024-09-20 12:32 | disposition home or self-care (01) ==
LOC: NCHCN 12:31
PROVIDERS: PCP Nurse Practitioner Family; Visit Provider Nurse Practitioner Family
DX: N18.32 Chronic kidney disease, stage 3b (principal); R73.03 Prediabetes; D64.9 Anemia, unspecified
CPT/HCPCS: 80053; 85027; 82728; 83036; 83540; 83550

== ENCOUNTER 2025-02-23 01:58 | Outpatient (CLI) | payer MEDICARE, SELFPAY ==
--- NOTE | 2025-02-23 | DI.MAMMO_ITS ---
Exam(s) MAMMO SCREENING EXAM: MAMMO SCREENING CLINICAL HISTORY: SCREENING, Z12.31 TECHNIQUE: Mammograms were interpreted according to the usual protocol including computer analysis with CAD system, tomosynthesis and C-view imaging. COMPARISON: 2014 through 2023 FINDINGS: The breasts are composed of scattered fibroglandular densities, Breast Density category B. No suspicious masses or suspicious microcalcifications are seen. No skin thickening or abnormal axillary lymph nodes are seen. There has been no significant change from prior exams. IMPRESSION: BI-RADS Category 1, Negative mammogram Yearly screening mammography is recommended. Breast Density - Category B - There are scattered areas of fibroglandular density. Breast density Category C or D implies that the patient has dense breast tissue. Dense breast tissue can make it harder to find cancer on a mammogram. Dense breast tissue is also associated with an increased risk of breast cancer. This information about the result of the mammogram report was provided to the patient to raise their awareness. Use this report when you speak with the patient about their risks for breast cancer, which includes their family history. At that time, you may recommend additional screening tests (Ultrasound or MRI) as these tests may add significant information. A negative radiographic report should not delay biopsy if a dominant or clinically suspicious mass is present. Up to ten percent of cancers are not identified on mammography. A negative report may reinforce clinical impression. Adenosis and dense breasts may obscure an underlying neoplasm. False positive reports average 6 to 10%. Patient will receive a letter notifying them of these results.
== END 2025-02-23 02:18 ==
PROVIDERS: PCP Nurse Practitioner Family; Visit Provider Nurse Practitioner Family
DX: Z12.31 Encounter for screening mammogram for malignant neoplasm of breast (principal); R92.323 Mammographic fibroglandular density, bilateral breasts
CPT/HCPCS: 77063; 77067

== ENCOUNTER 2025-04-03 15:18 | Outpatient (REF) | payer MEDICARE, SELFPAY ==
[2025-04-03 15:40] LABS: HCT 32.1 % (36.0-46.0); HGB 10.5 g/dL (11.2-15.7); MCH 31.8 pg (27.0-33.0); MCHC 32.7 % (32.0-36.0); MCV 97 fL (80-95); MPV 11.2 fL (8.0-11.0); Platelet Count 227 10^3/uL (130-400); RBC 3.30 10^6/uL (3.93-5.22); RDW 11.7 % (11.7-14.6); RDW-SD 41.8 fL; WBC 3.97 10^3/uL (4.4-10.8)
[2025-04-03 16:55] LABS: ALT 52 U/L (14-59); AST 27 U/L (15-37); Albumin 4.2 g/dL (3.4-5.0); Alkaline Phosphatase 238 U/L (46-116); Anion Gap 9.2 mmol/L (3-11); BUN 23 mg/dL (7-18); Bilirubin, Total 0.7 mg/dL (0.2-1.0); CO2 24.8 mmol/L (21.0-32.0); Calcium 9.8 mg/dL (8.5-10.1); Chloride 107 mmol/L (98-107); Estimated GFR 27.37 (mL/min/1.73m2); Ferritin 86 ng/mL (8-252); Glucose 132 mg/dL (74-106); Potassium 4.5 mmol/L (3.5-5.1); Sodium 141 mmol/L (136-145); Total Protein 7.4 g/dL (6.4-8.2)
[2025-04-03 17:06] LABS: Hemoglobin A1C 6.2 % (<5.7)
[2025-04-04 16:07] LABS: Vitamin D 25 Total 45 ng/mL (30-100)
[2025-04-04 16:11] LABS: Iron 82 ug/dL (50-170); Total Iron Binding Capacity 293 ug/dL (250-450); Transferrin Sat 28 % (15-50)
== END 2025-04-03 15:19 | disposition home or self-care (01) ==
LOC: NCHCN 15:18
PROVIDERS: PCP Nurse Practitioner Family; Visit Provider Nurse Practitioner Family
DX: N18.32 Chronic kidney disease, stage 3b (principal); E11.9 Type 2 diabetes mellitus without complications; D64.9 Anemia, unspecified
CPT/HCPCS: 80053; 82306; 85027; 82728; 83036; 83540; 83550; 83970

== ENCOUNTER 2025-04-13 20:06 | Outpatient (REF) | payer MEDICARE, SELFPAY | END 2025-04-13 20:07 | disposition home or self-care (01) | LOC: LBN 20:06 | PROVIDERS: PCP Nurse Practitioner Family; Visit Provider Physician Assistant Medical | DX: R31.9 Hematuria, unspecified (principal) | CPT/HCPCS: 81015; 87086 ==

== ENCOUNTER 2025-05-11 21:31 | Outpatient (REF) | payer MEDICARE, SELFPAY | END 2025-05-11 21:32 | disposition home or self-care (01) | LOC: LBN 21:31 | PROVIDERS: PCP Nurse Practitioner Family; Visit Provider Physician Assistant Medical | DX: N89.8 Other specified noninflammatory disorders of vagina (principal) | CPT/HCPCS: 81015; 87086; 87480; 87510; 87660 ==